=== PATIENT | male | born 1955 | race Caucasian/White ===

== ENCOUNTER 2021-06-17 08:16 | Day surgery (SDC) | payer OTHER ==
[~2021-06-17] VITALS: Ht 182.9 cm; Wt 84.4 kg
[2021-06-17] VITALS (13 sets, daily range): BP systolic 114–188; BP diastolic 59–101
[2021-06-17] MEDS ORDERED: albumin 25% 100mL bottle x 1 IV PRN (08:40)
[2021-06-17 09:11] LABS: BASOPHILS % (AUTO) 0.7 % (0-1); EOSINOPHILS # (AUTO) 0.4 X10'3 (0-0.9); EOSINOPHILS % (AUTO) 5.3 % (0-6); HEMATOCRIT 50.2 % (42.0-52.0); HEMOGLOBIN 17.3 g/dl (14.0-17.9); LYMPHOCYTES # (AUTO) 1.4 X10'3 (1.1-4.8); MEAN CORPUSCULAR HEMOGLOBIN 31.5 PG (27.0-31.0); MEAN CORPUSCULAR HGB CONC 34.5 g/dL (33.0-36.5); MEAN CORPUSCULAR VOLUME 91.4 FL (78-98); MEAN PLATELET VOLUME 9.2 FL (7.4-10.4); MONOCYTES # (AUTO) 0.5 X10'3 (0-0.9); MONOCYTES % (AUTO) 7.9 % (2-12); NEUTROPHILS # (AUTO) 4.4 X10'3 (1.8-7.7); NEUTROPHILS % (AUTO) 65.1 % (42-75); PLATELET COUNT 180 X10'3 (140-440); RED BLOOD COUNT 5.49 X10'6 (4.70-6.10); RED CELL DISTRIBUTION WIDTH 13.4 % (11.5-14.5); WHITE BLOOD COUNT 6.8 X10'3 (4.5-11.0)
[2021-06-17] MEDS ORDERED: normal saline 1000ml 1,000 ML IV PRN (09:20)
[2021-06-17] MEDS ORDERED: IBUP-1986 PO (09:33)
[2021-06-17] MEDS ORDERED: TIOT4MIS3 (09:33)
[2021-06-17] MEDS ORDERED: ALBU90AE INH (09:33)
[2021-06-17] MEDS ORDERED: fentaNYL/PF 50MCG/1 ML 2ML syringe ONE (11:07)
[2021-06-17] MEDS ORDERED: midazolam 1 mg/ML 2ml injection ONE (11:07)
== END 2021-06-17 13:40 | disposition home or self-care (01) ==
LOC: SSTAY O 08:16
PROVIDERS: ATTEND Preventive Medicine Aerospace Medicine
DX: R91.1 Solitary pulmonary nodule (principal); C34.91 Malignant neoplasm of unspecified part of right bronchus or lung; J43.9 Emphysema, unspecified; F17.210 Nicotine dependence, cigarettes, uncomplicated; Z72.89 Other problems related to lifestyle; Z79.899 Other long term (current) drug therapy; Z79.01 Long term (current) use of anticoagulants
CPT/HCPCS: 32408; 36415; 71045; 85025; 85610; 99152; 99153; J2250; J3010; 77012